=== PATIENT | female | born 1980 | race Caucasian/White ===

== ENCOUNTER 2018-08-19 07:53 | Day surgery (SDC) | payer MEDICAID ==
--- NOTE | 2018-08-18 11:34 | PREOPHP ---
DATE OF ADMISSION: 08/19/2018 Scheduled for outpatient surgery 08/19/2018. HISTORY OF PRESENT ILLNESS: The patient is a 37-year-old female in overall good health who developed a right breast mass that has been enlarging since the end of last year. 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 A maternal aunt had breast cancer at age 35. The patient has undergone genetic testing, which is negative. On imaging the lesion is located in the right breast at 2 o'clock, 9 cm from the nipple, measuring 12 x 11 x 11 mm. PAST MEDICAL HISTORY: MEDICATIONS: None. ALLERGIES: LATEX. PAST MEDICAL HISTORY: Saline implants in 2006. PAST SURGICAL HISTORY: section x3, right inguinal hernia repair years ago. REVIEW OF SYSTEMS: 3, para 3, having regular menstrual periods. PHYSICAL EXAMINATION: GENERAL: The patient is 5 foot 2 inches, 167 pounds. Stable vital signs. HEENT: Within normal limits. LUNGS: Clear. HEART: Regular rhythm. The breasts are large and ptotic with implants. The left breast is unremarkable. The right breast in the upper inner quadrant at the periphery is a 1 cm mobile, tender nodule. There is no axillary or supraclavicular lymphadenopathy. ABDOMEN: Soft. Pelvic and rectal: per primary care. EXTREMITIES: Without edema. NEUROLOGIC: Physiologic. IMPRESSION: Enlarging right breast mass. PLAN: Excision of right breast mass. I have had a full discussion with the patient regarding the nature of her condition, the nature of the surgery, indications, alternatives, options and risks including bleeding, infection, need for additional procedures based on final pathology or additional treatments based on final pathology, scarring, distortion of the breast, etc. All questions have been answered. The patient understands and agrees to proceed. Dictated By: FACUNDO VAUGHAN/CAROLEE Conf#: [id number] DID#: [id number] ESTEFANY
[2018-08-18 16:56] VITALS: BMI 31.1
[~2018-08-19] VITALS: Ht 157.5 cm; Wt 77.2 kg
[2018-08-19] VITALS (12 sets, daily range): BP systolic 86–113; BP diastolic 48–71; PULSE 62–84; RESP 10–28; Ht 157.5 cm; Wt 77.2 kg
[~2018-08-19 07:53] MED LIST: CEFAZOLIN 2 GM/50 ML (PMX) 50 ML IVPB SCH; SEVOFLURANE 15 MIN ONE; SOD CHLORIDE 0.9% 1,000 ML IV ONE
--- NOTE | 2018-08-19 08:07 | HPN ---
Date/Time of Note Date/Time of Note DATE: 08/19/18 TIME: 08:06 Interval H&P Admission Note Pt. seen H&P reviewed: No system changes FACUNDO BOYER August 19, 2018 08:07
--- NOTE | 2018-08-19 09:24 | PREAC ---
Date/Time of Note Date/Time of Note DATE: 08/19/18 TIME: 09:23 Anesthesia Eval and Record Evaluation Time Pre-Procedure Interview DATE: 08/19/18 TIME: 09:23 Age 37 Sex female NPO: 8 hrs Preoperative diagnosis right breast mass Planned procedure excision of right breast mass Past Medical History Past Medical History: None Surgery & Anesthesia Issues No known issue Meds Anticoagulation: No Beta Cheli within 24 hr: No Reason Beta Cheli not given: Pt. not on B-Cheli No Active Prescriptions or Reported Meds Current Medications Cefazolin Sodium/ Dextrose 50 ml @ 100 mls/hr PRE-OP IVPB ; Start 08/19/18 at 06:00; Stop 08/19/18 at 15:00 Sodium Chloride 1,000 ml @ 75 mls/hr [id number] ONCE IV ; Start 08/19/18 at 06:00; Stop 08/19/18 at 19:19 Meds reviewed: Yes Allergies Coded Allergies: latex (Verified Allergy, Unknown, 08/19/18) Allergies Reviewed: Yes Labs/Studies Labs Reviewed: Reviewed by anesthesiologist Result Diagram: 08/19/18 0840 Laboratory Tests 08/19/18 08:40 test: Negative Pre-procedure Exam Last vitals Vital Signs Date Temp Pulse Resp B/P (MAP) Pulse Ox O2 O2 Flow FiO2 Time Delivery Rate 08/19/18 98.3 67 18 113/69 98 Room Air 08:56 (84) Airway: Adequate mouth opening, Adequate thyromental dist Mallampati: Mallampati I Teeth: Normal Lung: Normal Heart: Normal ASA Physical Status ASA physical status: 1 Emergency: None Planned Anesthetic General/MAC: LMA Planned Pain Management Parenteral pain med Pre-operative Attestations Prior to commencing anesthesia and surgery, the patient was re-evaluated, there was verification of: *The patient's identity *The results of appropriate recent lab work and preoperative vital signs *The above evaluation not changing prior to induction *Anesthetic plan, risk benefits, alternative and complications discussed with patient/family; questions answered; patient/family understands, accepts and wishes to proceed. ESTRELLA DUMONT August 19, 2018 09:24
[2018-08-19] MEDS ORDERED: PROPOFOL 100 ML ONE (09:33)
[2018-08-19] MEDS ORDERED: CEFAZOLIN 1 GM INJ ONE (09:41)
[2018-08-19] MEDS ORDERED: LIDOCAINE 2% (SDV) 5 ML INJ ONE (09:41)
[2018-08-19] MEDS ORDERED: LIDOCAINE 1% (MPF) 30 ML INJ ONE (09:56)
[2018-08-19] MEDS ORDERED: DEXAMETHASONE 4 MG/ML 5 ML INJ ONE (10:04)
[2018-08-19] MEDS ORDERED: ONDANSETRON 4 MG INJ ONE (10:04)
--- NOTE | 2018-08-19 10:15 | SIPON ---
Date/Time of Note Date/Time of Note DATE: 08/19/18 TIME: 10:14 Operative Report Preoperative Diagnosis right breast mass Postoperative Diagnosis same Operation/Procedure Performed excision right breast mass Surgeon see signature line or assistant none Anesthesia: general Estimated blood loss: none Transfusion Required none Specimen right breast mass Grafts/Implants none Complications none FACUNDO BOYER August 19, 2018 10:15
--- NOTE | 2018-08-19 10:23 | PAC ---
Date/Time of Note Date/Time of Note DATE: 08/19/18 TIME: 10:22 Post-Anesthesia Notes Post-Anesthesia Note Last documented vital signs Vital Signs Date Temp Pulse Resp B/P (MAP) Pulse Ox O2 O2 Flow FiO2 Time Delivery Rate 08/19/18 98.3 67 18 113/69 98 Room Air 1022 (84) Activity: WNL Respiratory function: WNL Cardiovascular function: WNL Mental status: Baseline Pain reasonably controlled: Yes Hydration appropriate: Yes Nausea/Vomiting absent: Yes ESTRELLA DUMONT August 19, 2018 10:23
[2018-08-19] MEDS ORDERED: EPHEDrine 25 MG/5 ML SYG IV PRN (10:30)
[2018-08-19] MEDS ORDERED: DIPHENHYDRAMINE 50 MG INJ IV PRN (10:30)
[2018-08-19] MEDS ORDERED: FENTAnyl 50 MCG/ML VIAL IV PRN ×3 (10:30)
[2018-08-19] MEDS ORDERED: OXYCODONE/ACETAMINOPHEN (5/325) TAB PO PRN ×2 (10:30)
[2018-08-19] MEDS ORDERED: MIDAZOLAM 1 MG/ML 2 ML INJ IV PRN (10:30)
[2018-08-19] MEDS ORDERED: ONDANSETRON 4 MG INJ IV PRN (10:30)
[2018-08-19] MEDS ORDERED: hydrALAzine 20 MG INJ IV PRN (10:30)
[2018-08-19] MEDS ORDERED: ALBUTEROL 0.083% (NEB) 2.5 MG/3 ML AMP HHN PRN (10:30)
[2018-08-19] MEDS ORDERED: LABETALOL HCL 20MG INJ IV PRN (10:30)
[2018-08-19] MEDS ORDERED: MEPERIDINE 25 MG INJ IV PRN (10:30)
[2018-08-19] MEDS ORDERED: KETOROLAC 30 MG INJ IV PRN (10:30)
[2018-08-19] MEDS ORDERED: METOCLOPRAMIDE 10 MG INJ IV PRN (10:30)
--- NOTE | 2018-08-19 10:53 | OPR ---
DATE OF OPERATION: 08/19/2018 SURGEON: Facundo Valencia MD CEREAL MAKER: None. ANESTHESIOLOGIST: Dr. David. ANESTHESIA: General. PREOPERATIVE DIAGNOSIS: Right breast mass. POSTOPERATIVE DIAGNOSIS: Right breast mass. OPERATION PERFORMED: Excisional biopsy of right breast mass. INDICATIONS: The patient has an enlarging right breast mass with tenderness with core biopsy reveali ng phyllodes tumor versus fibroadenoma. The mass was completely excised. DESCRIPTION OF PROCEDURE: The patient was taken to the operating room and under general anesthesia, with sequential compression device stockings in place, she was prepped and draped in the usual fashio n. A curvilinear incision was made overlying the nodule in the periphery of the upper outer quadrant of the right breast. She has bilateral implants. The subcutaneous tissues incised and the palpable mass was then completely excised using cautery for hemostasis. Specimen was taken off the field for pathology. No visible or palpable abnormality remained. There was no encounter with the implant wh ich was deeper. After ascertaining hemostasis was secure, 1% lidocaine plain was used to infiltrate the skin and subcutaneous tissues. It was irrigated and hemostasis was secure. The incision was moises sed with interrupted 3-0 Vicryl, deep dermal subcutaneous sutures followed by continuous 4-0 Monocryl subcuticular suture. Mastisol and 1/2-inch Steri-Strips were applied, followed by dry sterile dress ing. Final sponge and needle counts were correct. The patient tolerated the procedure well and left the operating room in good condition. Dictated By: FACUNDO VAUGHAN/CAROLEE Conf#: [id number] DID#: [id number]
== END 2018-08-19 11:33 | disposition home or self-care (01) ==
LOC: SDS 07:53
PROVIDERS: ATTEND Surgery
DX: D24.1 Benign neoplasm of right breast (principal)
CPT/HCPCS: 19120; 80053; 85025; 85610; 85730; 88307; J0690; J1100; J2405; J3010; Z7512; Z7610